=== PATIENT | male | born 1955 | race Caucasian/White ===

== ENCOUNTER 2019-09-10 13:11 | Outpatient (CLI) | payer BC, SELFPAY ==
--- NOTE | 2019-09-10 13:37 | CT_ITS ---
WS: [id number] CTA NECK TECHNIQUE: Contrast enhanced CTA of the neck with coronal and sagittal reformatted images and maximum intensity projection (MIP) images. NASCET criteria utilized. CLINICAL INFORMATION: CAROTID ARTERY STENOSIS COMPARISON: None. DLP: 1082.[address] scans at [facility] use at least one of these dose optimization techniques: automat ed exposure control; mA and/or kV adjustment per patient size (includes targeted exams where dose is matched to clinical indication); or iterative reconstruction. FINDINGS: RIGHT: Right common carotid artery is patent. Calcified atheromatous plaque right proximal ICA withou t significant stenosis. Right ICA is patent to the skull base. LEFT: Left common carotid artery is patent. Left proximal ICA stenosis measuring 48%. Eccentric ather omatous plaque with eccentric narrowing in the proximal ICA. Left ICA is patent to the skull base. Both vertebral arteries are patent. Proximal basilar artery is patent. Proximal [place] appe ars unremarkable. Mastoid air cells are well aerated. Paranasal sinuses are well aerated. Partially c alcified thyroid nodule lower pole left thyroid measuring [address]/CT angio neck 77003 IMPRESSION: 1. Left proximal ICA stenosis with eccentric plaque measuring 48%. Left ICA r emains patent to the skull base. 2. No significant right ICA stenosis. 3. Codominant and patent vertebral arteries bilaterally. 4. Proximal [place] appears unremarkable. 5. Partially calcified left thyroid nodule measuring 13 mm projecting from the lower pole. This can be followed up with ultrasound on an elective basis.
[2019-09-10 14:30] LABS: Blood Urea Nitrogen 15 mg/dL (8-23); Glomerular Filtration Rate 75.5 mL/min (90-130)
[2019-09-10] MEDS: iohexol 350 mg/mL 100 mL Btl IV (14:36)
== END 2019-09-10 13:12 | disposition home or self-care (01) ==
LOC: RADWPI 13:17
PROVIDERS: Family Provider Family Medicine; PCP Family Medicine; Visit Provider Family Medicine
DX: I65.22 Occlusion and stenosis of left carotid artery (principal); E04.1 Nontoxic single thyroid nodule
CPT/HCPCS: 70498; 82565; 84520; Q9967

== ENCOUNTER → 2019-11-26 15:30 | Outpatient (BNVA) | payer BC, SELFPAY | PROVIDERS: Family Provider Family Medicine; PCP Family Medicine; Visit Provider Nurse Practitioner Family | DX: N39.0 Urinary tract infection, site not specified (principal) | CPT/HCPCS: 80053; 81001; 87077; 87086; 87186 ==

== ENCOUNTER 2019-12-17 07:10 | Outpatient (CLI) | payer BC, SELFPAY ==
--- NOTE | 2019-12-17 07:18 | XR_ITS ---
WS: [id number] KUB, 12/17/2019 Clinical Data: Stone Comparison: KUB, 05/14/2019 Findings: No abnormal intraabdominal masses or calcifications are seen. There is no dilatated small bowel or ev idence of obstruction. There is a large amount of fecal material throughout the colon obscuring detail over the kidneys. The re are prosthetic calcifications. XR/XR KUB [id number] Impression: Negative for definite renal or ureteral calculi.
== END 2019-12-17 07:11 | disposition home or self-care (01) ==
PROVIDERS: Family Provider Family Medicine; PCP Family Medicine; Visit Provider Urology
DX: N20.9 Urinary calculus, unspecified (principal)
CPT/HCPCS: 74018; 81001

== ENCOUNTER 2020-05-17 06:38 | Outpatient (CLI) | payer BC, SELFPAY ==
--- NOTE | 2020-05-17 07:15 | XR_ITS ---
WS: [id number] ABDOMEN KUB CLINICAL INFORMATION: Renal/ureteral calculi. COMPARISON: December 17, 2019 FINDINGS: Mild lumbar curve convex left. Prostate calcification. A few pelvic phleboliths. No renal or ureteral calculi. XR/XR KUB [id number] Impression: No visualized renal or ureteral calculi.
== END 2020-05-17 06:39 | disposition home or self-care (01) ==
LOC: RAD 06:46
PROVIDERS: Family Provider Family Medicine; PCP Family Medicine; Visit Provider Urology
DX: N20.9 Urinary calculus, unspecified (principal)
CPT/HCPCS: 74018; 81003

== ENCOUNTER → 2021-03-24 07:52 | Outpatient (BNVA) | payer BC, SELFPAY | PROVIDERS: Family Provider Family Medicine; PCP Family Medicine; Visit Provider Nurse Practitioner Family | DX: N39.0 Urinary tract infection, site not specified (principal) | CPT/HCPCS: 81003; 87077; 87086; 87184 ==

== ENCOUNTER 2021-05-18 06:53 | Outpatient (CLI) | payer BC, SELFPAY ==
--- NOTE | 2021-05-18 17:15 | XR_ITS ---
WS: [id number] KUB, AP view, 05/18/2021 Clinical Data: UROLITHIASIS Comparison: KUB, 05/17/2020. Findings: No abnormal intraabdominal masses or calcifications are seen. There is no dilatated small bowel or ev idence of obstruction. There are phleboliths in the true pelvis and prostatic calcifications. There is a large amount of fec al material throughout the colon. XR/XR KUB 46101 Impression: Negative KUB.
== END 2021-05-18 06:54 | disposition home or self-care (01) ==
LOC: RAD 06:55
PROVIDERS: PCP Family Medicine; Visit Provider Urology
DX: N20.9 Urinary calculus, unspecified (principal)
CPT/HCPCS: 74018; 81003

== ENCOUNTER → 2021-09-05 13:11 | Outpatient (BNVA) | payer BC, SELFPAY | PROVIDERS: PCP Family Medicine; Visit Provider Urology | DX: N39.0 Urinary tract infection, site not specified (principal); N20.9 Urinary calculus, unspecified | CPT/HCPCS: 81003 ==

== ENCOUNTER → 2021-12-12 15:58 | Outpatient (BNVA) | payer BC, SELFPAY | PROVIDERS: PCP Family Medicine; Visit Provider Nurse Practitioner Family | DX: N39.0 Urinary tract infection, site not specified (principal); N20.9 Urinary calculus, unspecified | CPT/HCPCS: 81003 ==

== ENCOUNTER → 2022-06-12 12:42 | Outpatient (BNVA) | payer BC, SELFPAY | PROVIDERS: PCP Family Medicine; Visit Provider Urology | DX: N39.0 Urinary tract infection, site not specified (principal) | CPT/HCPCS: 81003 ==

== ENCOUNTER → 2023-01-16 08:04 | Outpatient (BNVA) | payer MEDICARE, OTHER, SELFPAY | PROVIDERS: PCP Family Medicine; Visit Provider Family Medicine | DX: E78.5 Hyperlipidemia, unspecified (principal) | CPT/HCPCS: 80053; 80061 ==

== ENCOUNTER 2023-01-31 06:24 | Outpatient (CLI) | payer MEDICARE, OTHER, SELFPAY ==
--- NOTE | 2023-01-31 07:00 | CT_ITS ---
WS: [id number] CTA NECK TECHNIQUE: Contrast enhanced CTA of the neck with coronal and sagittal reformatted images and maximum intensity projection (MIP) images. NASCET criteria utilized. CLINICAL INFORMATION: fu on carotid artery stenosis; thyroid nodule COMPARISON: CT 09/10/19 DLP: 307.[address] scans at [facility] use at least one of these dose optimization techniques: automated e xposure control; mA and/or kV adjustment per patient size (includes targeted exams where dose is matc hed to clinical indication); or iterative reconstruction. FINDINGS: RIGHT: RIGHT common carotid artery is patent. Mild to moderate calcified atheromatous plaque RIGHT ca rotid bulb extending into the ICA. RIGHT ICA is patent to the skull base. No significant RIGHT ICA st enosis. LEFT: LEFT common carotid artery is patent. Moderate calcified and noncalcified atheromatous plaque L EFT carotid bulb extending into the ICA. LEFT ICA remains patent to the skull base. LEFT ICA stenosis measures 35-40% Codominant and patent vertebral arteries bilaterally. Basilar artery is patent. Normal vascularity to the [employer] territory bilaterally. Paranasal sinuses well aerated. Mastoid air cells are well aerated. Petrous apices are pneumatized. Lung apices are well aerated. Mild spondylitic changes cervical spine. Disc space narrowing worse at C5-C6. Normal posterior nasopharynx. Normal parapharyngeal fat. Calcified LEFT thyroid nodule. LEFT t hyroid nodule measures 9 mm. A few additional tiny thyroid nodules. IMPRESSION: 1. No significant RIGHT ICA stenosis. 2. LEFT ICA stenosis measures 35-40%. This appears stable compared 2020 3. Codominant patent vertebral arteries bilaterally. 4. Calcified LEFT thyroid nodule measuring 9 mm.
[2023-01-31] MEDS: iohexol 350 mg/mL 500 mL Btl (per mL) IV (07:09)
== END 2023-01-31 06:25 | disposition home or self-care (01) ==
PROVIDERS: PCP Family Medicine; Visit Provider Family Medicine
DX: I77.9 Disorder of arteries and arterioles, unspecified (principal); E04.1 Nontoxic single thyroid nodule; I65.23 Occlusion and stenosis of bilateral carotid arteries
CPT/HCPCS: 70498; Q9967

== ENCOUNTER 2023-09-12 06:04 | Outpatient (CLI) | payer MEDICARE, OTHER, SELFPAY ==
--- NOTE | 2023-09-12 06:30 | US_ITS ---
WS: [id number] ULTRASOUND ABDOMEN LIMITED CLINICAL INFORMATION: abd pain COMPARISON: None. FINDINGS: Technically difficult study and limited due to bowel gas. Liver Size: Mild hepatomegaly Craniocaudal length: 17.7 cm. Echogenicity: Normal. Surface nodularity: None. Mass (size and location): None. Normal flow in the main portal vein. Bile ducts Intrahepatic ducts: Normal. Common bile duct diameter: 0.2 cm. Gallbladder Normal. Gallstones: None. Gallbladder sludge: None. Gallbladder wall thickening: None. Pericholecystic fluid: None. Sonographic Cleaning sign: Absent. Pancreas Normal as visualized. Right kidney: 2 small simple cysts. Hydronephrosis: None. Size: 12.3 cm x 5.2 cm x 4.6 cm. Abdominal aorta and IVC Visualized portions are normal. Ascites: None. IMPRESSION: 1. Mild hepatomegaly. 2. Normal gallbladder. 3. Normal common bile duct. 4. No hydronephrosis in the RIGHT kidney. 5. 2 simple cysts RIGHT kidney measuring 2.1 x 1.6 x 1.3 cm and 2.0 x 1.8 x 1.5 cm
== END 2023-09-12 06:05 | disposition home or self-care (01) ==
LOC: RAD 06:06
PROVIDERS: PCP Family Medicine; Visit Provider Family Medicine
DX: R10.9 Unspecified abdominal pain (principal); N28.1 Cyst of kidney, acquired
CPT/HCPCS: 76705

== ENCOUNTER 2023-10-08 09:14 | Outpatient (CLI) | payer MEDICARE, OTHER, SELFPAY ==
--- NOTE | 2023-10-08 10:00 | NM_ITS ---
WS: [id number] NUCLEAR MEDICINE HIDA SCAN WITH GALLBLADDER EJECTION FRACTION HISTORY: abd pain COMPARISON: Gallbladder ultrasound 09/12/2023 TECHNIQUE: The patient was intravenously injected with 7.9 mCi of TC99m Mebrofenin. Immediate imaging over the right upper quadrant was followed by 5 minute image and additional images for a total of 60 minutes. Normal uptake of radiotracer throughout the liver. Activity identified in the gallbladder at 20 minutes and well distended by 60 minutes. Activity in the proximal small bowel was seen by 40 minutes. Good washout of the radiotracer from the liver by 60 minutes. The patient then drank 8 ounces of Ensure Plus. Ejection fraction at 60 minutes was 41%. Normal GB ej ection fraction is 35-75%. Post fatty meal symptoms: None. IMPRESSION: 1. Normal HIDA scan. 2. Normal gallbladder ejection fraction.
== END 2023-10-08 09:15 | disposition home or self-care (01) ==
LOC: RAD 09:15
PROVIDERS: PCP Family Medicine; Visit Provider Family Medicine
DX: R10.9 Unspecified abdominal pain (principal)
CPT/HCPCS: 78227; A9537

== ENCOUNTER 2023-10-23 07:39 | Outpatient (RCR) | payer MEDICARE, OTHER, SELFPAY | END 2023-11-06 23:59 | disposition home or self-care (01) | LOC: SPT 07:39 | PROVIDERS: PCP Family Medicine; Visit Provider Family Medicine | DX: M25.511 Pain in right shoulder (principal) | CPT/HCPCS: 97110; 97161 ==

== ENCOUNTER 2023-11-07 06:00 | Outpatient (RCR) | payer MEDICARE, OTHER, SELFPAY | END 2023-12-07 23:59 | disposition home or self-care (01) | LOC: SPT 06:00 | PROVIDERS: PCP Family Medicine; Visit Provider Family Medicine | DX: M25.511 Pain in right shoulder (principal) | CPT/HCPCS: 97110 ==

== ENCOUNTER 2023-12-08 06:00 | Outpatient (RCR) | payer MEDICARE, OTHER, SELFPAY | END 2024-01-06 23:59 | disposition home or self-care (01) | LOC: SPT 06:00 | PROVIDERS: PCP Family Medicine; Visit Provider Family Medicine | DX: M25.511 Pain in right shoulder (principal) | CPT/HCPCS: 97110 ==

== ENCOUNTER 2024-01-07 06:00 | Outpatient (RCR) | payer MEDICARE, OTHER, SELFPAY | END 2024-01-08 23:59 | disposition home or self-care (01) | LOC: SPT 06:00 | PROVIDERS: PCP Family Medicine; Visit Provider Family Medicine | DX: M25.511 Pain in right shoulder (principal) | CPT/HCPCS: 97110 ==

== ENCOUNTER → 2025-02-23 07:26 | Outpatient (BNVA) | payer MEDICARE, OTHER, SELFPAY | PROVIDERS: PCP Family Medicine; Visit Provider Family Medicine Adult Medicine | DX: R30.0 Dysuria (principal) | CPT/HCPCS: 81000 ==

== ENCOUNTER → 2025-06-24 10:25 | Outpatient (BNVA) | payer MEDICARE, OTHER, SELFPAY | PROVIDERS: PCP Family Medicine; Visit Provider Family Medicine | DX: N30.01 Acute cystitis with hematuria (principal) | CPT/HCPCS: 81000; 87086 ==